=== PATIENT | female | born 1965 | race Caucasian/White ===

== ENCOUNTER 2016-04-05 16:30 | Outpatient (RCR) | payer MEDICAID ==
[~2016-04-05 16:30] MED LIST: ALBUTEROL0.83 MG/ML IH; ASPIRIN 32325 MG/TA1 PO; ASPIRIN 32325 MG/TAB PO; BUMEX 1MG TA1 MG/TA1 PO; CALCIUM 600 PLU1 TAB PO; CARDIZEM CD 18180 MG PO; CARDIZEM CD 30300 MG PO; CLOTRIM ANTIFUNGAL1% TP; COLACE 100100 MG/CAP PO; CORDARONE200 MG/TAB PO; COREG 6.256.25 MG/TA PO; COUMADIN 1MG1 MG/TAB PO; COUMADIN 22.5 MG/TAB PO; COUMADIN 2MG2 MG/TAB PO; COUMADIN 5MG5 MG/TAB PO; COUMADIN 6MG6 MG/TAB PO; CUBICIN 500MG500 MG IV; DESENEX TP; DESYREL 50MG50 MG PO; DIGITEK0.25 MG PO; DOXYCYCLINE 10100 MG PO; DOXYCYCLINE HY100 MG PO; DULCOLAX S10 MG/SUPP RC; FERROUS SU325 MG/TAB PO; FLEXERIL 1010 MG/TAB PO; GLUCOPHAGE500 MG/TAB PO; HALDOL .5M0.5 MG/TAB PO; HEPARIN 50500 U/5 ML IV; HOME MEDS; INDOCIN50 MG PO; IPRATROPIUM BROM3 M1 IH; JANUVIA50 MG PO; KLOR-CON 1010 MEQ PO; LANOXIN 0.25M0.25 MG PO; LASIX 20MG TABL20 MG PO; LASIX 40MG TABL40 MG PO; LASIX 80MG TABL80 MG PO; LEVAQUIN 5500 MG/TA1 PO; LEVOXYL0.05 MG PO; LIDODERM 5% PATC1 EA TP; LIPITOR 40MG TA40 MG PO; LIPITOR20 MG PO; LOVENOX 100100 MG/ML SQ; LOVENOX 4040 MG/0.4 SQ; MAG-OX 400400 MG/TAB PO; MEDROL 4MG DOSPA4 MG PO; MELAT3MGTAB PO; MIRALAX PA17 GM/Dose PO; MULTI VITAMINS1 TAB PO; NICODERM C21 MG/PATC TD; NITRO-DUR0.4 MG/PAT TD; NITROSTAT0.4 MG/TAB SL; NORCO 325 MG-51 TAB PO; NORCO 325 MG-7.1 TAB PO; NOVLOG SQ; NS INT FLUSH 1010 ML IV; NYSTATIN POWDER15 GM TOP; OSCAL 500 TAB500 MG PO; PERCOCET 325 MG1 TA2 PO; PLAVIX 75MG TAB75 MG PO; PREDNISONE10 MG PO; PRINIVIL10 MG PO; PRINIVIL2.5 MG PO; PRINIVIL5 MG PO; PROTONIX 40MG T40 MG PO; PROVENTIL0.09 MG/A1 IH; PROVIGIL200 MG PO; QUESTRAN4 GM/9 GM PO; RISPERDAL 0.5M0.5 MG PO; ROXICODONE 55 MG/TAB PO; RT ADVAIR 128 DISKUS; RT ADVAIR 228 DISKUS IH; RT SPIRIVA18 MCG IH; Remove Patch TD; SENNA8.6 MG PO; SENOKOT S 50 MG1 TAB PO; SYNTHROID0.05 MG/TA PO; SYNTHROID0.112 MG/T PO; TESSALON P100 MG/CAP PO; THERAGRAN1 TA1 PO; TOPROL XL 25MG25 MG PO; TOPROL XL 50MG50 MG PO; TRADJENTA5 MG PO; TUMS500 MG; TYLENOL 325MG325 MG PO; TYLENOL 8 HR PO; VANCOCIN HCL1 GM IV; VIIBRYD40 MG PO; VITAMIN C500 MG PO; VTAMINC250TA; VTAMINC250TA PO; WELLBUTRIN SR100 M1 PO; ZESTRIL2.5 MG PO; ZETIA 10MG TAB10 MG PO; ZINC OXIDE 28GM TOP; ZOLOFT 100MG100 MG PO; ZYLOPRIM 100MG100 MG PO
== END 2016-04-30 | disposition still patient (30) ==
LOC: WSOT
DX: G72.89 Other specified myopathies (principal)

== ENCOUNTER → 2016-04-11 | Outpatient (CLI) | payer SELFPAY ==
[~2016-04-11] MED LIST changes: +COUMADIN 3MG3 MG/TAB PO; +KLOR-CON M2020 MEQ PO; +LOPRESSOR 225 MG/TAB PO; +MELATONIN3 MG PO; +MULTIPLE VITAMI1 CAP PO; +SYNTHROID0.088 MG/T PO; +WELLBUTRIN 100100 MG PO; +WELLBUTRIN SR200 MG PO; +ZESTRIL 5MG5 MG PO
== END ==
LOC: WCC 13:00
DX: T81.31XA Disruption of external operation (surgical) wound, not elsewhere classified, initial encounter (principal); E66.01 Morbid (severe) obesity due to excess calories; R17 Unspecified jaundice
CPT/HCPCS: G0463

== ENCOUNTER 2016-04-12 10:00 | Outpatient (RCR) | payer SELFPAY ==
[~2016-04-12 10:00] MED LIST changes: -COUMADIN 3MG3 MG/TAB PO; -KLOR-CON M2020 MEQ PO; -LOPRESSOR 225 MG/TAB PO; -MELATONIN3 MG PO; -MULTIPLE VITAMI1 CAP PO; -SYNTHROID0.088 MG/T PO; -WELLBUTRIN 100100 MG PO; -WELLBUTRIN SR200 MG PO; -ZESTRIL 5MG5 MG PO
== END 2016-04-19 09:42 | disposition still patient (30) ==
LOC: WSPT 10:00
DX: M62.81 Muscle weakness (generalized) (principal); R26.2 Difficulty in walking, not elsewhere classified

== ENCOUNTER → 2016-04-12 | Outpatient (CLI) | payer SELFPAY ==
[2016-04-12 20:36] LABS: BASO % 0.5 % (0.0-2.0); EOS # 0.1 (0.0-0.7); EOS % 0.8 % (0-4.0); GRAN # 5.9 (1.4-6.5); GRAN % 79.6 % (42.2-75.2); HEMATOCRIT 38.5 % (37.0-47.0); LYMPH % 13.6 % (20.0-51.0); MEAN CELL VOLUME 90 fl (80.0-100.0); MEAN CORPUSCULAR HEMOGLOBIN 26 pg (27.0-31.0); MEAN CORPUSCULAR HGB CONC 29 g/dl (33.0-37.0); MEAN PLATELET VOLUME 10.5 fl (7.4-10.4); MONO # 0.4 (0.1-0.6); MONO % 5.4 % (1.7-9.3); PLATELET COUNT 291 K/mm3 (130-400); RED BLOOD COUNT 4.28 M/mm3 (4.10-5.30); REDCELL DISTRIBUTION WIDTH-CV 16.6 % (11.5-14.5); WHITE BLOOD COUNT 7.4 K/mm3 (4.8-10.8)
[2016-04-12 20:40] LABS: HEMOGLOBIN 11.2 g/dl (12.5-16.0)
[2016-04-12 20:47] LABS: ADJUSTED CALCIUM 9.7 mg/dL (8.4-10.2); ALBUMIN 3.7 gm/dL (3.5-5.0); BILIRUBIN,TOTAL 0.7 mg/dL (0.0-1.0); CALCIUM 9.5 mg/dL (8.4-10.2); CREATININE, serum 1.21 mg/dL (0.52-1.25); POTASSIUM 4.6 mmol/L (3.4-5.0); TOTAL PROTEIN 6.7 gm/dL (6.4-8.2)
== END ==
LOC: ZCOL.LAB 17:39
PROVIDERS: Nurse Practitioner
DX: Z01.89 Encounter for other specified special examinations (principal)

== ENCOUNTER → 2016-05-07 | Outpatient (CLI) | payer SELFPAY ==
[~2016-05-07] MED LIST changes: +COUMADIN 3MG3 MG/TAB PO; +KLOR-CON M2020 MEQ PO; +LOPRESSOR 225 MG/TAB PO; +MELATONIN3 MG PO; +MULTIPLE VITAMI1 CAP PO; +SYNTHROID0.088 MG/T PO; +WELLBUTRIN 100100 MG PO; +WELLBUTRIN SR200 MG PO; +ZESTRIL 5MG5 MG PO
[2016-05-07 10:26] LABS: CALCIUM 9.3 mg/dL (8.4-10.2); CREATININE, serum 1.16 mg/dL (0.52-1.25); POTASSIUM 4.2 mmol/L (3.4-5.0)
[2016-05-07 10:56] LABS: THYROID STIMULATING HORMONE 16.3 uIU/mL (0.465-4.680)
== END ==
LOC: ZLAB.STJ 09:20
DX: D55.1 Anemia due to other disorders of glutathione metabolism (principal); E13.620 Other specified diabetes mellitus with diabetic dermatitis

== ENCOUNTER → 2016-05-17 | Outpatient (CLI) | payer MEDICAID ==
[2016-05-17 17:23] LABS: INR 4.5 (0.8-3.0); PROTHROMBIN TIME 52.2 SECONDS (9.7-12.8)
== END ==
LOC: ZCOL.LAB 17:08
PROVIDERS: Internal Medicine
DX: I50.9 Heart failure, unspecified (principal)

== ENCOUNTER → 2016-05-19 | Outpatient (CLI) | payer MEDICAID ==
[2016-05-19 12:51] LABS: PROTHROMBIN TIME 40.8 SECONDS (9.7-12.8)
[2016-05-19 13:01] LABS: INR 3.5 (0.8-3.0)
== END ==
LOC: ZLAB.STJ 11:43
PROVIDERS: Internal Medicine
DX: I50.9 Heart failure, unspecified (principal)

== ENCOUNTER → 2016-05-22 | Outpatient (CLI) | payer MEDICAID ==
[2016-05-22 17:05] LABS: INR 1.6 (0.8-3.0); PROTHROMBIN TIME 17.7 SECONDS (9.7-12.8)
== END ==
LOC: ZLAB.STJ 12:09
PROVIDERS: Internal Medicine
DX: I48.0 Paroxysmal atrial fibrillation (principal)

== ENCOUNTER 2016-05-27 20:17 | Emergency (ER) | payer MEDICAID ==
[~2016-05-27] VITALS: Ht 167.6 cm; Wt 118.2 kg
[~2016-05-27 20:17] MED LIST changes: -COUMADIN 3MG3 MG/TAB PO; -KLOR-CON M2020 MEQ PO; -LOPRESSOR 225 MG/TAB PO; -MELATONIN3 MG PO; -MULTIPLE VITAMI1 CAP PO; -SYNTHROID0.088 MG/T PO; -WELLBUTRIN 100100 MG PO; -WELLBUTRIN SR200 MG PO; -ZESTRIL 5MG5 MG PO
[2016-05-27 20:18] VITALS: TEMP 98.5
[2016-05-27 20:49] LABS: BASO % 0.6 % (0.0-2.0); EOS % 0.8 % (0-4.0); GRAN # 4.1 (1.4-6.5); LYMPH # 0.6 (1.2-3.4); LYMPH % 12.2 % (20.0-51.0); MEAN CELL VOLUME 88 fl (80.0-100.0); MEAN CORPUSCULAR HGB CONC 29 g/dl (33.0-37.0); MEAN PLATELET VOLUME 9.2 fl (7.4-10.4); MONO # 0.4 (0.1-0.6); PLATELET COUNT 246 K/mm3 (130-400); RED BLOOD COUNT 3.82 M/mm3 (4.10-5.30); REDCELL DISTRIBUTION WIDTH-CV 17.7 % (11.5-14.5); WHITE BLOOD COUNT 5.3 K/mm3 (4.8-10.8)
[2016-05-27 20:50] LABS: HEMATOCRIT 33.6 % (37.0-47.0); HEMOGLOBIN 9.8 g/dl (12.5-16.0); MEAN CORPUSCULAR HEMOGLOBIN 26 pg (27.0-31.0)
[2016-05-27 20:59] LABS: ADJUSTED CALCIUM 9.3 mg/dL (8.4-10.2); ALANINE AMINOTRANSFERASE 21 U/L (9-52); ALBUMIN 3.5 gm/dL (3.5-5.0); ALKALINE PHOSPHATASE 132 U/L (50-136); ANION GAP 10 mmol/L (7-16); BILIRUBIN,TOTAL 0.8 mg/dL (0.0-1.0); BLOOD UREA NITROGEN 19 mg/dL (7-17); CALCIUM 8.9 mg/dL (8.4-10.2); CARBON DIOXIDE 34 mmol/L (22-30); CHLORIDE 96 mmol/L (98-107); CREATINE KINASE 25 U/L (30-135); CREATININE, serum 1.44 mg/dL (0.52-1.25); GLUCOSE 90 mg/dL (74-106); LIPASE 61 U/L (23-300); POTASSIUM 4.2 mmol/L (3.4-5.0); SODIUM 139 mmol/L (137-145); TOTAL PROTEIN 6.6 gm/dL (6.4-8.2)
[2016-05-27 21:07] LABS: B-TYPE NATRIURETIC PEPTIDE 10400 pg/mL (0-125)
[2016-05-27 21:12] LABS: TROPONIN-I < 0.012 ng/mL (0.000-0.034)
[2016-05-27] MEDS ORDERED: LASIX 20MG TABL20 MG PO (21:35)
[2016-05-27] MEDS ORDERED: KLOR-CON M2020 MEQ PO (21:35)
[2016-05-27] MEDS ORDERED: WELLBUTRIN 100100 MG PO (21:36)
[2016-05-27] MEDS ORDERED: WELLBUTRIN SR200 MG PO (21:36)
[2016-05-27] MEDS ORDERED: COUMADIN 2MG2 MG/TAB PO (21:37)
[2016-05-27] MEDS ORDERED: COUMADIN 3MG3 MG/TAB PO (21:37)
[2016-05-27] MEDS ORDERED: ZESTRIL 5MG5 MG PO (21:43)
[2016-05-27] MEDS ORDERED: LOPRESSOR 225 MG/TAB PO (21:44)
[2016-05-27] MEDS ORDERED: QUESTRAN4 GM/9 GM PO (21:44)
[2016-05-27] MEDS ORDERED: TYLENOL 8 HR PO (21:44)
[2016-05-27] MEDS ORDERED: PROVIGIL200 MG PO (21:45)
[2016-05-27] MEDS ORDERED: ZOLOFT 100MG100 MG PO (21:45)
[2016-05-27] MEDS ORDERED: DESYREL 50MG50 MG PO (21:45)
[2016-05-27] MEDS ORDERED: VTAMINC250TA PO (21:46)
[2016-05-27] MEDS ORDERED: MULTIPLE VITAMI1 CAP PO (21:46)
[2016-05-27] MEDS ORDERED: COREG 6.256.25 MG/TA PO (21:46)
[2016-05-27] MEDS ORDERED: MELATONIN3 MG PO (21:46)
[2016-05-27] MEDS ORDERED: FERROUS SU325 MG/TAB PO (21:47)
[2016-05-27] MEDS ORDERED: LIPITOR20 MG PO (21:47)
[2016-05-27] MEDS ORDERED: SYNTHROID0.088 MG/T PO (21:47)
[2016-05-27] MEDS ORDERED: COLACE 100100 MG/CAP PO (21:48)
[2016-05-27] MEDS ORDERED: PROTONIX 40MG T40 MG PO (21:48)
[2016-05-27] MEDS ORDERED: CORDARONE200 MG/TAB PO (21:48)
[2016-05-27] MEDS ORDERED: MAG-OX 400400 MG/TAB PO (21:48)
[2016-05-27 23:01] VITALS: BP 102/80; PULSE 53
== END 2016-05-27 22:46 | disposition home or self-care (01) ==
LOC: COL.ER 20:17
PROVIDERS: Emergency Medicine
DX: I50.9 Heart failure, unspecified (principal); I25.10 Atherosclerotic heart disease of native coronary artery without angina pectoris; J44.9 Chronic obstructive pulmonary disease, unspecified; Z95.5 Presence of coronary angioplasty implant and graft
CPT/HCPCS: A4315

== ENCOUNTER → 2016-05-29 | Outpatient (CLI) | payer SELFPAY ==
[~2016-05-29] MED LIST changes: +COUMADIN 3MG3 MG/TAB PO; +KLOR-CON M2020 MEQ PO; +LOPRESSOR 225 MG/TAB PO; +MELATONIN3 MG PO; +MULTIPLE VITAMI1 CAP PO; +SYNTHROID0.088 MG/T PO; +WELLBUTRIN 100100 MG PO; +WELLBUTRIN SR200 MG PO; +ZESTRIL 5MG5 MG PO
== END ==
LOC: ZLAB.STJ 15:28
DX: Z53.9 Procedure and treatment not carried out, unspecified reason (principal)

== ENCOUNTER → 2016-06-28 | Outpatient (CLI) | payer MEDICAID ==
[2016-06-28 16:22] LABS: CALCIUM 9.9 mg/dL (8.4-10.2); CREATININE, serum 1.31 mg/dL (0.52-1.25); POTASSIUM 4.2 mmol/L (3.4-5.0)
== END ==
LOC: ZLAB.STJ 14:34
PROVIDERS: Internal Medicine
DX: I50.9 Heart failure, unspecified (principal)

== ENCOUNTER → 2016-08-06 | Outpatient (CLI) | payer MEDICAID | LOC: EDSTATUS 06:54 → ZLAB.STJ 09:20 | DX: R53.1 Weakness (principal) ==

== ENCOUNTER → 2016-08-30 | Outpatient (CLI) | payer MEDICAID ==
[2016-08-30 10:38] LABS: MEAN CELL VOLUME 92 fl (80.0-100.0); MEAN CORPUSCULAR HGB CONC 32 g/dl (33.0-37.0); MEAN PLATELET VOLUME 9.7 fl (7.4-10.4); PLATELET COUNT 193 K/mm3 (130-400); RED BLOOD COUNT 4.02 M/mm3 (4.10-5.30); REDCELL DISTRIBUTION WIDTH-CV 21.2 % (11.5-14.5); WHITE BLOOD COUNT 5.8 K/mm3 (4.8-10.8)
[2016-08-30 10:51] LABS: ADJUSTED CALCIUM 9.9 mg/dL (8.4-10.2); ALBUMIN 3.3 gm/dL (3.5-5.0); BILIRUBIN,TOTAL 0.5 mg/dL (0.0-1.0); CALCIUM 9.3 mg/dL (8.4-10.2); CREATININE, serum 1.4 mg/dL (0.52-1.25); POTASSIUM 4.6 mmol/L (3.4-5.0); TOTAL PROTEIN 6.3 gm/dL (6.4-8.2)
[2016-08-30 11:16] LABS: HEMOGLOBIN 11.7 g/dl (12.5-16.0); MEAN CORPUSCULAR HEMOGLOBIN 29 pg (27.0-31.0)
[2016-08-30 11:17] LABS: HEMATOCRIT 36.8 % (37.0-47.0)
== END ==
LOC: ZLAB.STJ 09:40
PROVIDERS: Nurse Practitioner
DX: N17.9 Acute kidney failure, unspecified (principal); I50.9 Heart failure, unspecified; Z79.01 Long term (current) use of anticoagulants

== ENCOUNTER → 2016-09-06 | Outpatient (REF) | LOC: ZLAB.STJ 10:33 | DX: Z01.89 Encounter for other specified special examinations (principal) ==

== ENCOUNTER → 2016-10-08 | Outpatient (CLI) | payer MEDICAID | LOC: ZLAB.STJ 16:14 | DX: J96.01 Acute respiratory failure with hypoxia (principal) ==

== ENCOUNTER → 2018-02-04 | Outpatient (REF) ==
[2018-02-04 11:09] LABS: COLLECTION METHOD CLEAN CATCH
[2018-02-04 11:26] LABS: MUCOUS Present /lpf; PH 6 (5-8); URINE APPEARANCE Cloudy; URINE BACTERIA Many /hpf; URINE BILIRUBIN Negative (NEGATIVE); URINE BLOOD Negative (NEGATIVE); URINE CALCIUM OXALATE CRYSTAL Present /hpf; URINE COLOR Yellow; URINE GLUCOSE Negative (NEGATIVE); URINE KETONE Negative (NEGATIVE); URINE LEUKOCYTE ESTERASE 2+ (NEGATIVE); URINE NITRATE Positive (NEGATIVE); URINE PROTEIN(semi-quant) 1+ (NEGATIVE); URINE RBC 0-2 /hpf; URINE UROBILINOGEN Negative (NEGATIVE)
== END ==
LOC: ZCOL.LAB 11:01 → ZLAB.WCH 11:01
PROVIDERS: Physician Assistant
DX: N39.0 Urinary tract infection, site not specified (principal)

== ENCOUNTER → 2018-02-09 | Outpatient (CLI) | payer MEDICAID | LOC: ZCOL.LAB 13:51 | DX: N39.0 Urinary tract infection, site not specified (principal) ==

== ENCOUNTER → 2018-02-10 | Outpatient (REF) | LOC: ZCOL.LAB 17:51 | DX: L03.115 Cellulitis of right lower limb (principal) ==

== ENCOUNTER → 2018-02-11 | Outpatient (REF) ==
[2018-02-11 09:43] LABS: BASO % 0.4 % (0.0-2.0); EOS # 0.1 (0.0-0.7); GRAN # 5.7 (1.4-6.5); GRAN % 81.6 % (42.2-75.2); HEMATOCRIT 37.9 % (37.0-47.0); HEMOGLOBIN 10.9 g/dl (12.5-16.0); LYMPH # 0.7 (1.2-3.4); LYMPH % 10.1 % (20.0-51.0); MEAN CELL VOLUME 100 fl (80.0-100.0); MEAN CORPUSCULAR HEMOGLOBIN 29 pg (27.0-31.0); MEAN CORPUSCULAR HGB CONC 29 g/dl (33.0-37.0); MEAN PLATELET VOLUME 11.4 fl (7.4-10.4); MONO # 0.5 (0.1-0.6); MONO % 6.6 % (1.7-9.3); PLATELET COUNT 234 K/mm3 (130-400); RED BLOOD COUNT 3.78 M/mm3 (4.10-5.30); REDCELL DISTRIBUTION WIDTH-CV 18.2 % (11.5-14.5)
[2018-02-11 09:54] LABS: ALBUMIN 3.9 gm/dL (3.5-5.0); BILIRUBIN,TOTAL 0.5 mg/dL (0.0-1.0); CALCIUM 8.6 mg/dL (8.4-10.2); CREATININE, serum 1.3 mg/dL (0.52-1.25); POTASSIUM 4.2 mmol/L (3.4-5.0); TOTAL PROTEIN 6.8 gm/dL (6.4-8.2)
== END ==
LOC: ZCOL.LAB 09:33
PROVIDERS: Physician Assistant
DX: I13.0 Hypertensive heart and chronic kidney disease with heart failure and stage 1 through stage 4 chronic kidney disease, or unspecified chronic kidney disease (principal); I50.20 Unspecified systolic (congestive) heart failure; N18.9 Chronic kidney disease, unspecified

== ENCOUNTER → 2018-02-16 | Emergency (ER) | payer MEDICAID ==
[~2018-02-16] VITALS: Ht 154.9 cm; Wt 113.2 kg
[~2018-02-16] MED LIST changes: +BACTRIM DS 8001 TAB PO
[2018-02-16 15:00] VITALS: TEMP 98.7
[2018-02-16 16:47] LABS: BASO % 0.4 % (0.0-2.0); EOS # 0.1 (0.0-0.7); EOS % 1.1 % (0-4.0); GRAN # 5.9 (1.4-6.5); GRAN % 79.8 % (42.2-75.2); HEMOGLOBIN 10.1 g/dl (12.5-16.0); LYMPH # 0.8 (1.2-3.4); LYMPH % 10.9 % (20.0-51.0); MEAN CELL VOLUME 101 fl (80.0-100.0); MEAN CORPUSCULAR HEMOGLOBIN 28 pg (27.0-31.0); MEAN CORPUSCULAR HGB CONC 28 g/dl (33.0-37.0); MONO # 0.6 (0.1-0.6); MONO % 7.5 % (1.7-9.3); PLATELET COUNT 199 K/mm3 (130-400); RED BLOOD COUNT 3.56 M/mm3 (4.10-5.30); REDCELL DISTRIBUTION WIDTH-CV 17.7 % (11.5-14.5)
[2018-02-16 16:53] LABS: HEMATOCRIT 35.8 % (37.0-47.0)
[2018-02-16 17:10] LABS: ALBUMIN 3.9 gm/dL (3.5-5.0); BILIRUBIN,TOTAL 0.4 mg/dL (0.0-1.0); C-REACTIVE PROTEIN 1.7 mg/dL (0.0-0.9); CALCIUM 8.9 mg/dL (8.4-10.2); CREATININE, serum 1.56 mg/dL (0.52-1.25); POTASSIUM 4.2 mmol/L (3.4-5.0); TOTAL PROTEIN 6.9 gm/dL (6.4-8.2)
[2018-02-16 17:24] LABS: ERYTHROCYTE SEDIMENTATION RATE 15 mm/hr (0-30)
[2018-02-16 18:14] VITALS: BP 166/95; PULSE 59
== END ==
LOC: COL.ER 14:38
PROVIDERS: Emergency Medicine
DX: L97.829 Non-pressure chronic ulcer of other part of left lower leg with unspecified severity (principal); B95.62 Methicillin resistant Staphylococcus aureus infection as the cause of diseases classified elsewhere; J44.9 Chronic obstructive pulmonary disease, unspecified; I11.0 Hypertensive heart disease with heart failure; I50.9 Heart failure, unspecified; I25.10 Atherosclerotic heart disease of native coronary artery without angina pectoris; E11.9 Type 2 diabetes mellitus without complications; Z79.01 Long term (current) use of anticoagulants

== ENCOUNTER 2018-05-20 15:40 | Inpatient (IN) | payer MEDICAID ==
[~2018-05-20] VITALS: Ht 170.2 cm; Wt 145.6 kg
[2018-05-20] VITALS (209 sets, daily range): O2SAT 81–100
[~2018-05-20 15:40] MED LIST changes: -WELLBUTRIN 100100 MG PO
[2018-05-20 16:42] LABS: BASO % 0.5 % (0.0-2.0); EOS # 0.1 (0.0-0.7); GRAN # 6.8 (1.4-6.5); GRAN % 85.8 % (42.2-75.2); HEMATOCRIT 37.8 % (37.0-47.0); HEMOGLOBIN 10.4 g/dl (12.5-16.0); LYMPH # 0.4 (1.2-3.4); LYMPH % 4.7 % (20.0-51.0); MEAN CELL VOLUME 94 fl (80.0-100.0); MEAN CORPUSCULAR HEMOGLOBIN 26 pg (27.0-31.0); MEAN CORPUSCULAR HGB CONC 28 g/dl (33.0-37.0); MEAN PLATELET VOLUME 10.9 fl (7.4-10.4); MONO # 0.6 (0.1-0.6); MONO % 7.6 % (1.7-9.3); PLATELET COUNT 282 K/mm3 (130-400); RED BLOOD COUNT 4.02 M/mm3 (4.10-5.30); REDCELL DISTRIBUTION WIDTH-CV 18.9 % (11.5-14.5)
[2018-05-20 16:59] LABS: ALBUMIN 3.5 gm/dL (3.5-5.0); BILIRUBIN,TOTAL 0.8 mg/dL (0.0-1.0); C-REACTIVE PROTEIN 4.8 mg/dL (0.0-0.9); CALCIUM 9.1 mg/dL (8.4-10.2); CREATININE, serum 1.53 mg/dL (0.52-1.25); POTASSIUM 5.3 mmol/L (3.4-5.0); TOTAL PROTEIN 6.9 gm/dL (6.4-8.2)
[2018-05-20 17:11] LABS: ERYTHROCYTE SEDIMENTATION RATE 40 mm/hr (0-30)
[2018-05-20] MEDS ORDERED: ELIQUIS 5MG PO (17:47)
--- NOTE | 2018-05-20 19:34 | NUR ---
Patient arrived to the unit via stretcher.
[2018-05-20] MEDS ORDERED: NEURONTIN300 MG/CAP PO (21:23)
[2018-05-20] MEDS ORDERED: RT ADVAIR 528 DISKUS IH (21:24)
[2018-05-20] MEDS ORDERED: BACTRIM DS 8001 TAB PO (21:25)
[2018-05-20] MEDS ORDERED: PROAIR HFA0.09 MG/AC IH (21:28)
--- NOTE | 2018-05-20 21:45 | NUR ---
Skin assessment and bed bath completed. Skin under right breast reddened and excoriated. Excoriation also noted under pannus. This area is oozing small amounts of blood with cleansing. Groin reddend with multiple areas of raw non-intact skin. Buttocks also excoriated with dry flaky skin. Right foot bandage removed. A circular unstageagle ulcer measuring 5X5 cm noted. Area is blackened and necrotic; surrounding skin on medial foot has yellow eschar underneath a layer of intact skin. Bandage reapplied and wrapped. Foul odor is noted from wound. Anterior portion of ferro is dry, with discolored darkened flaky patches. Medial ferro has approximately 5X5 cm area of shallow wound with a pink wound bed. This area is open to air.
[2018-05-21] VITALS (856 sets, daily range): BP systolic 99–140; BP diastolic 1–65; PULSE 47–63; TEMP 97.8–98.9; O2SAT 79–100
[2018-05-21 00:51] LABS: CREATININE, serum 1.6 mg/dL (0.52-1.25)
--- NOTE | 2018-05-21 03:24 | NUR ---
Patient resting in bed with eyes shut; no concerns at this time.
--- NOTE | 2018-05-21 04:45 | NUR ---
Patient complaining of gereralized pain; PRN norco administered and assisted to reposition in bed. Will continue to monitor.
[2018-05-21] MEDS ORDERED: NORCO 325 MG-51 TAB PO (04:48)
[2018-05-21 04:55] LABS: BASO % 0.5 % (0.0-2.0); EOS # 0.2 (0.0-0.7); EOS % 2.1 % (0-4.0); GRAN # 6.4 (1.4-6.5); GRAN % 83.6 % (42.2-75.2); HEMATOCRIT 36.2 % (37.0-47.0); LYMPH # 0.4 (1.2-3.4); LYMPH % 4.8 % (20.0-51.0); MEAN CELL VOLUME 94 fl (80.0-100.0); MEAN CORPUSCULAR HEMOGLOBIN 26 pg (27.0-31.0); MEAN CORPUSCULAR HGB CONC 28 g/dl (33.0-37.0); MONO # 0.7 (0.1-0.6); MONO % 8.6 % (1.7-9.3); PLATELET COUNT 312 K/mm3 (130-400); RED BLOOD COUNT 3.85 M/mm3 (4.10-5.30); REDCELL DISTRIBUTION WIDTH-CV 19.2 % (11.5-14.5)
[2018-05-21 05:06] LABS: CALCIUM 8.9 mg/dL (8.4-10.2); CREATININE, serum 1.66 mg/dL (0.52-1.25); POTASSIUM 4.9 mmol/L (3.4-5.0)
--- NOTE | 2018-05-21 07:05 | NUR ---
Bedside report given to CHUNG Powers and CHUNG Leiva. Patient care transfered.
[2018-05-21 16:27] LABS: COLLECTION METHOD CATHETER
[2018-05-21 16:41] LABS: BUDDING YEAST Present /hpf; HYALINE CAST >12 /lpf; MUCOUS Present /lpf; PH 5 (5-8); SQUAMOUS EPITHELIAL 0-2 /hpf; URINE APPEARANCE Cloudy; URINE BACTERIA Rare /hpf; URINE BILIRUBIN Negative (NEGATIVE); URINE BLOOD 3+ (NEGATIVE); URINE COLOR Yellow; URINE GLUCOSE Negative (NEGATIVE); URINE KETONE Negative (NEGATIVE); URINE LEUKOCYTE ESTERASE 2+ (NEGATIVE); URINE NITRATE Negative (NEGATIVE); URINE PROTEIN(semi-quant) Negative (NEGATIVE); URINE RBC >50 /hpf
--- NOTE | 2018-05-21 16:50 | NUR ---
Repot given to CHUNG Jeong on TELE.
--- NOTE | 2018-05-21 17:10 | NUR ---
Pt trabsfered to rm 351. Pt statble at time of tx, denies pain when not moving, VSS, A/Ox3, n 2L NC prior to tx but able to tolerate tx on room air. Pt placed on tele box and O2 2L restated on arrival to new room. CHUNG Gomez made aware of pt arrival.
--- NOTE | 2018-05-21 18:59 | NUR ---
Report given to CHUNG Reyes to resume care.
--- NOTE | 2018-05-21 20:49 | NUR ---
Pt resting in bed watching TV, shift assessments complete, left Pt call light in reach, bed in lowest position.
[2018-05-22 00:26] VITALS: BP 106/46; PULSE 50; TEMP 98.2
[2018-05-22 04:43] VITALS: BP 105/46; PULSE 44; TEMP 97.8
--- NOTE | 2018-05-22 05:29 | NUR ---
Pt slept well during the night, no C/O pain, VS have been stable.
[2018-05-22 07:08] LABS: BASO % 0.7 % (0.0-2.0); EOS # 0.1 (0.0-0.7); EOS % 2.3 % (0-4.0); GRAN % 70.7 % (42.2-75.2); LYMPH # 0.7 (1.2-3.4); LYMPH % 12.8 % (20.0-51.0); MEAN CELL VOLUME 96 fl (80.0-100.0); MEAN CORPUSCULAR HGB CONC 27 g/dl (33.0-37.0); MEAN PLATELET VOLUME 11.1 fl (7.4-10.4); MONO # 0.7 (0.1-0.6); MONO % 12.8 % (1.7-9.3); PLATELET COUNT 319 K/mm3 (130-400); RED BLOOD COUNT 3.68 M/mm3 (4.10-5.30); REDCELL DISTRIBUTION WIDTH-CV 19.2 % (11.5-14.5)
[2018-05-22 07:12] LABS: HEMATOCRIT 35.3 % (37.0-47.0); HEMOGLOBIN 9.4 g/dl (12.5-16.0); MEAN CORPUSCULAR HEMOGLOBIN 26 pg (27.0-31.0)
[2018-05-22 07:16] LABS: C-REACTIVE PROTEIN 4.4 mg/dL (0.0-0.9); CALCIUM 8.4 mg/dL (8.4-10.2); CREATININE, serum 1.94 mg/dL (0.52-1.25); POTASSIUM 4.4 mmol/L (3.4-5.0)
[2018-05-22 07:59] VITALS: BP 102/44; PULSE 73; TEMP 98.1
--- NOTE | 2018-05-22 10:36 | NUR ---
SW met with patient after clinical rounds. Patient lives is but is currently living with her daughter. Her PCP is Dr Nickerson and she obtain prescriptions from [facility] in [place]. Patient uses a wheelchair but no other DME is reported and she does not use any home health services. Patient will likley need 6 weeks of IV antibiotics once she is discharged. Patient reports her can take her these appoitments. SW will contact [facility] to inquire will be able to use them for her IV antibiotics.
[2018-05-22 11:52] VITALS: BP 106/53; PULSE 49; TEMP 98.1
[2018-05-22 16:35] VITALS: BP 123/70; PULSE 52; TEMP 98.7
[2018-05-22 19:28] VITALS: BP 116/75; PULSE 56; TEMP 98.4
[2018-05-23] VITALS (7 sets, daily range): BP systolic 109–139; BP diastolic 44–82; PULSE 48–56; TEMP 98.2–98.8
--- NOTE | 2018-05-23 00:15 | NUR ---
Taking over care for patient at this time- pleasant, no requests at this time- o2 at 2L/nc, Llanos to DD with clear yellow urine, States has some pain with urination- urine culture pending, lung sounds clear, decreased in the bases, right leg with dressing dry and intact, has scabs/abrasion to RLE-discolored. L/BKA. PICC to LORENA. Denies any pain at this time. Contact [facility] for HX MRSA
--- NOTE | 2018-05-23 05:53 | NUR ---
Quiet night- slept well, no requests for pain meds-
[2018-05-23 07:24] LABS: BASO % 0.4 % (0.0-2.0); EOS # 0.1 (0.0-0.7); EOS % 1.4 % (0-4.0); GRAN # 5.2 (1.4-6.5); GRAN % 75.4 % (42.2-75.2); LYMPH # 0.7 (1.2-3.4); LYMPH % 10.5 % (20.0-51.0); MEAN CELL VOLUME 96 fl (80.0-100.0); MEAN CORPUSCULAR HGB CONC 27 g/dl (33.0-37.0); MEAN PLATELET VOLUME 10.7 fl (7.4-10.4); MONO # 0.8 (0.1-0.6); MONO % 11.4 % (1.7-9.3); PLATELET COUNT 344 K/mm3 (130-400); RED BLOOD COUNT 3.65 M/mm3 (4.10-5.30); REDCELL DISTRIBUTION WIDTH-CV 18.9 % (11.5-14.5)
[2018-05-23 07:26] LABS: HEMOGLOBIN 9.4 g/dl (12.5-16.0); MEAN CORPUSCULAR HEMOGLOBIN 26 pg (27.0-31.0)
[2018-05-23 07:35] LABS: CALCIUM 8.5 mg/dL (8.4-10.2); POTASSIUM 4.1 mmol/L (3.4-5.0)
--- NOTE | 2018-05-23 08:25 | NUR ---
Pt AAOx2, pt thought she was at [facility] - pt reoriented. Call light within reach. No complaints at this time. Breakfast self ordered.
--- NOTE | 2018-05-23 09:00 | NUR ---
PICC intact right upper arm. With sterile technique right upper arm PICC dressing change done with insertion site cleansed with ChloraPrep 1, scant amount of dried red drainage noted, impregnated exiting disc applied, skin prep, StatLock, and Tegaderm applied. No signs or symptoms of IV complications noted. No concerns voiced. Arm wrapped with Wilfred to protect catheter.
--- NOTE | 2018-05-23 09:00 | NUR ---
Pt refusing to turn for repositioning
--- NOTE | 2018-05-23 15:30 | NUR ---
[facility] Director called and left phone number to contact prior to pt discharge to continue IV Antibiotics. [phone]
--- NOTE | 2018-05-23 16:43 | NUR ---
Pt is refusing to turn every two hours. KENYA Torres also unsuccessful in encouraging turning.
--- NOTE | 2018-05-23 18:01 | NUR ---
Dressing change performed on Right Foot Wound using gauze and kerlex loosly applied
[2018-05-24 02:27] VITALS: BP 121/57; PULSE 50; TEMP 98.8
--- NOTE | 2018-05-24 05:32 | NUR ---
PT HAD UNEVENTFUL NOC. HAD C/O HEADACHE AND GENERALIZED BODY ACHES WITHMOVING IN BED AND ASKED FOR PAIN MEDS. NO OTHER ISSUES OR CONSERNS VOICED.
[2018-05-24 06:42] LABS: BASO % 0.5 % (0.0-2.0); EOS # 0.1 (0.0-0.7); EOS % 1.7 % (0-4.0); GRAN # 5.8 (1.4-6.5); LYMPH % 12.5 % (20.0-51.0); MEAN CELL VOLUME 96 fl (80.0-100.0); MEAN CORPUSCULAR HGB CONC 27 g/dl (33.0-37.0); MEAN PLATELET VOLUME 10.9 fl (7.4-10.4); MONO # 0.8 (0.1-0.6); MONO % 10.4 % (1.7-9.3); PLATELET COUNT 344 K/mm3 (130-400); RED BLOOD COUNT 3.83 M/mm3 (4.10-5.30); REDCELL DISTRIBUTION WIDTH-CV 19.1 % (11.5-14.5)
[2018-05-24 06:47] LABS: HEMATOCRIT 36.8 % (37.0-47.0); HEMOGLOBIN 9.9 g/dl (12.5-16.0); MEAN CORPUSCULAR HEMOGLOBIN 26 pg (27.0-31.0)
[2018-05-24 07:06] LABS: CALCIUM 8.9 mg/dL (8.4-10.2); CREATININE, serum 1.82 mg/dL (0.52-1.25)
[2018-05-24 07:36] VITALS: BP 124/53; PULSE 52; TEMP 98.2
--- NOTE | 2018-05-24 09:00 | NUR ---
Assessment complete. Pt sitting up in bed eating breakfast, A&O x 3. Breath sounds CTAB. BS active x 4. Pt reports pain to right foot 7 out of 10 on pain scale. PICC to right upper arm without s/s of complications. Dressing to right foot CDI. Groin area with excoriation. Llanos to DD with clear, yellow urine. No further needs reported. Call light in reach.
[2018-05-24 11:00] VITALS: BP 124/59; PULSE 49; TEMP 98.1
--- NOTE | 2018-05-24 14:14 | NUR ---
Resting in bed eating lunch at this time. No pain or needs reported. Report recieved from CHUNG Laird. The call light is in place.
[2018-05-24 16:14] VITALS: BP 109/58; PULSE 50; TEMP 97.5
--- NOTE | 2018-05-24 18:15 | NUR ---
Sitting up watching television. No pain or needs reported the call light is place.
[2018-05-24 19:26] VITALS: BP 130/66; PULSE 49; TEMP 98
[2018-05-25 02:33] VITALS: BP 138/68; PULSE 49; TEMP 98.4
--- NOTE | 2018-05-25 03:30 | NUR ---
PT HAD C/O RT FOOT PAIN AT HS AND NEEDED PRN PAIN MED, MED ADMINSITERED. PT OTHERWISE HAD AN UNEVENTFUL NOC. APPEARED TO HAVE SLEPT WELL. NO OTHER ISSUES OR CONSERNS VOICED.
--- NOTE | 2018-05-25 06:16 | NUR ---
PT WAS IN ALOT OF PAIN THIS AM. ADMINISTERED PRN PAIN MED. REOPOSITIONED PT AND PT REMAINED IN PAIN. OFFERED PT PRN TYLENOL WELL WHEN SHE REQUESTED SOMETHING ELSE FOR PAIN, ADMINISTERED MED. PT WAS C/O ABOUT PAIN WITH URINATION. THIS NURSE TALKED TO ASSEMBLER [employer] ABOUT PT HAVING THIS PAIN, HAROON DELGADO STATED TO ENCOURAGE INCREASE OF INTAKE IN WATER DUE TO UA RESULTS. TOLD PT TO DRINK MORE WATER, PT STATED THAT SHE DIDNT THINK WATER WOULD HELP. FILLED ICE WATER PITCHER FULL OF ICE WATER FOR HER
[2018-05-25 07:15] VITALS: BP 129/63; PULSE 50; TEMP 97.5
[2018-05-25 11:35] VITALS: BP 136/72; PULSE 47; TEMP 98.2
--- NOTE | 2018-05-25 17:00 | NUR ---
Dressing to right foot with serous drainage, dressing removed and new dressing placed with ABD, sof-roll and Kerlix. This nurse offered pt pain medication prior to dressing change but pt denies need for medication at this time. Call light in reach.
[2018-05-25 17:09] VITALS: BP 130/66; PULSE 49; TEMP 97.9
[2018-05-25 19:08] VITALS: BP 134/63; PULSE 57; TEMP 97.9
--- NOTE | 2018-05-25 20:45 | NUR ---
Shift assessment complete. Pt resting in bed, sleepy but easy to wake, a&o, cooperative c cares. Pt c/o pain to RLE/foot, LLE phantom et stump pain, et RUE "arthritis" pain; provided c PRN pain med per pt request. Pt denies other c/o. PICC noted to R upper arm, patent c good blood return. Llanos to DD s complication. R BKA noted, healed. L foot ulcer noted, dressing C/D/I. LLE dry et flaking. Pt s further needs. Call light in reach, bed alarm in, place. Will monitor.
[2018-05-26 00:37] VITALS: BP 134/77; PULSE 53; TEMP 98.1
[2018-05-26 07:37] VITALS: BP 143/74; PULSE 51; TEMP 98.1
--- NOTE | 2018-05-26 08:00 | NUR ---
Pt required stimulation to awaken pt. While awake pt AOx4, and falls back asleep without continued verbal communication. Dressing change performed. Call light within reach, no complaints from pt at this time
[2018-05-26 08:58] LABS: CALCIUM 9.5 mg/dL (8.4-10.2); CREATININE, serum 1.4 mg/dL (0.52-1.25); POTASSIUM 4.3 mmol/L (3.4-5.0)
[2018-05-26 10:58] LABS: BASO % 0.4 % (0.0-2.0); EOS # 0.1 (0.0-0.7); EOS % 1.9 % (0-4.0); GRAN # 5.4 (1.4-6.5); GRAN % 76.3 % (42.2-75.2); HEMATOCRIT 36.1 % (37.0-47.0); LYMPH # 0.8 (1.2-3.4); LYMPH % 11.1 % (20.0-51.0); MEAN CELL VOLUME 94 fl (80.0-100.0); MEAN CORPUSCULAR HEMOGLOBIN 26 pg (27.0-31.0); MEAN CORPUSCULAR HGB CONC 28 g/dl (33.0-37.0); MEAN PLATELET VOLUME 10.3 fl (7.4-10.4); MONO # 0.7 (0.1-0.6); MONO % 9.4 % (1.7-9.3); PLATELET COUNT 345 K/mm3 (130-400); RED BLOOD COUNT 3.83 M/mm3 (4.10-5.30); REDCELL DISTRIBUTION WIDTH-CV 18.8 % (11.5-14.5)
--- NOTE | 2018-05-26 11:09 | NUR ---
SW met with patient after clinical rounds. SW reported PT has recommended patient go to a post acute rehab facility. SW informed patient of both [facility] and [facility] as options for this. Patient is open to either and is okay with SW sending referrals.
[2018-05-26 11:30] VITALS: BP 139/79; PULSE 50; TEMP 98.1
--- NOTE | 2018-05-26 13:38 | NUR ---
TIMOTHY rec'd a call from [facility]. They are unable to accept patient due to insurance.
[2018-05-26 14:54] VITALS: BP 144/83; PULSE 51; TEMP 97.9
[2018-05-26 19:27] VITALS: BP 141/84; PULSE 50; TEMP 97.2
--- NOTE | 2018-05-26 20:30 | NUR ---
Shift assessment complete. Pt resting in bed, awake, a&o, cooperative c cares. Pt crying out, c/o pain to BLE et R shoulder; PRN pain meds given c HS meds per pt request, rating pain "8/10". Pt denies other c/o. PICC noted to R upper arm, patent c good blood return. Llanos to DD. Pt denies further needs at this time. Call light in reach, will monitor.
[2018-05-27] VITALS (7 sets, daily range): BP systolic 114–148; BP diastolic 56–91; PULSE 45–56; TEMP 97.3–98.3
[2018-05-27 06:10] LABS: BASO % 0.5 % (0.0-2.0); EOS # 0.2 (0.0-0.7); EOS % 2.3 % (0-4.0); GRAN # 6.8 (1.4-6.5); GRAN % 77.5 % (42.2-75.2); HEMATOCRIT 38.3 % (37.0-47.0); HEMOGLOBIN 10.6 g/dl (12.5-16.0); MEAN CELL VOLUME 93 fl (80.0-100.0); MEAN CORPUSCULAR HEMOGLOBIN 26 pg (27.0-31.0); MEAN CORPUSCULAR HGB CONC 28 g/dl (33.0-37.0); MEAN PLATELET VOLUME 10.2 fl (7.4-10.4); MONO # 0.7 (0.1-0.6); MONO % 7.8 % (1.7-9.3); PLATELET COUNT 399 K/mm3 (130-400); RED BLOOD COUNT 4.12 M/mm3 (4.10-5.30); REDCELL DISTRIBUTION WIDTH-CV 18.9 % (11.5-14.5)
[2018-05-27 06:23] LABS: CALCIUM 9.7 mg/dL (8.4-10.2); CREATININE, serum 1.41 mg/dL (0.52-1.25); POTASSIUM 4.5 mmol/L (3.4-5.0)
--- NOTE | 2018-05-27 07:24 | NUR ---
Resting in bed at this time. No pain or needs reported. The call light is in place.
--- NOTE | 2018-05-27 16:39 | NUR ---
TIMOTHY continues to wait for acceptance from [facility]. TIMOTHY contacted [facility] to inquire if they accept [employer] insurance. TIMOTHY left message. TIMOTHY also faxed a referral to [facility] and contacted Elroy. Elroy reports he has had issues in the past with [employer] paying for [facility] but Elroy will look at referral and check payor source.
--- NOTE | 2018-05-27 19:30 | NUR ---
Pt resting with HOB elevated. States she needs to use the bedpan. Moderate amount of soft stool. Pericare completed. Pt turned and repositioned with pad change. Pulled up. No distress noted. Well tolerated. Lungs diminished in all ramey. O2 via NC. Pt denies pain at this time. Llanos catheter to dependent drainage- gael urine with sediment. Extensive scaling to RLE and LBKA. R foot unstageable ulceration covered with dressing-clean, dry and intact. All folds excoriated.
--- NOTE | 2018-05-27 19:35 | NUR ---
No change throughout the shift. Report given to CHUNG Marquez to resume care.
--- NOTE | 2018-05-27 23:30 | NUR ---
Report given to Esme WILKES
--- NOTE | 2018-05-27 23:35 | NUR ---
Report recieved from Alma WILKES to assume pt cares. Pt condition unchanged from previous shift assessment. Pt c/o continued pain to RLE et R arm as well as recurrent episode of "heebee jeebee's"; PRN pain/anxiety meds admin at this time per pt request. PT denies further needs. Call light in reach, bed alarm on. Will monitor.
[2018-05-28 04:34] VITALS: BP 143/72; PULSE 52; TEMP 98.7
[2018-05-28 07:50] VITALS: BP 144/76; PULSE 49; TEMP 98
--- NOTE | 2018-05-28 08:00 | NUR ---
Pt resting in bed with eyes closed. Breath sounds CTAB. BS active x 4. PICC to right upper arm without s/s of complications. Dressing to right foot CDI. O2 at 2 L/min via NC. No needs reported. Call light in reach.
--- NOTE | 2018-05-28 09:41 | NUR ---
TIMOTHY rec'd call from Kaylen at [facility]. They are unable to accept. TIMOTHY has faxed referrals to [facility] in [place], [facility], and [facility].
--- NOTE | 2018-05-28 10:17 | NUR ---
SW attended clinical rounds and met with patient after to disucss discharge plans. SW informed patient that [facility] is unable to accept her. SW also discuss [facility] as an option and [facility] in [place]. Patient prefers [facility] because [facility] is further away. Patient would also like to speak with her about [facility]. SW will update Elroy from [facility] about patient choices.
[2018-05-28 10:51] VITALS: BP 149/79; PULSE 54; TEMP 98
[2018-05-28 15:58] VITALS: BP 156/68; PULSE 51; TEMP 97.7
--- NOTE | 2018-05-28 18:15 | NUR ---
Pt sitting up in bed, requested pain medication this morning when working with PT, otherwise uneventful shift. Call light in reach.
[2018-05-28 20:15] VITALS: BP 131/90; PULSE 53; TEMP 97.7
--- NOTE | 2018-05-28 20:30 | NUR ---
Initial shift assessment done- states having pain 10/10 to leg,,also very anxious- requesting Ativan-- will give both [place] and Ativan at this time,, did use bedpan,had a soft brown stool. Dressing to right foot dry and intact-
[2018-05-28 23:15] VITALS: BP 136/70; PULSE 62; TEMP 98.9
[2018-05-29] VITALS (8 sets, daily range): BP systolic 115–149; BP diastolic 66–81; PULSE 53–61; TEMP 97.5–98
--- NOTE | 2018-05-29 14:00 | NUR ---
Primary nurse was assisted with [phone] patient care by [employer] student Janette Lemus and [employer] instructor Akosua Car RN-.
--- NOTE | 2018-05-29 14:54 | NUR ---
TIMOTHY met with Elroy from [facility] about patient. Elroy is waiting for insurance to approve. Connor with [facility] is also waiting to hear from insurance.
--- NOTE | 2018-05-29 20:30 | NUR ---
Initial shift assessment done- having some loose stools per bedpan- denies nausea. Requesting pain meds for right leg pain also would like her Ativan -
[2018-05-30 00:47] VITALS: BP 145/67; PULSE 57; TEMP 98
[2018-05-30 03:46] VITALS: BP 147/80; PULSE 56; TEMP 98.6
--- NOTE | 2018-05-30 05:16 | NUR ---
Quiet night- did have 3 small soft stool at beginning of shift but none since then-- medicated with Boyce twice for right leg /foot pain. VSS. Pt states her abdomen feels firmer than normal-
[2018-05-30 06:34] LABS: BASO # 0.1 (0.0-0.2); BASO % 0.6 % (0.0-2.0); EOS # 0.1 (0.0-0.7); EOS % 1.7 % (0-4.0); GRAN # 6.4 (1.4-6.5); GRAN % 79.3 % (42.2-75.2); HEMOGLOBIN 10.1 g/dl (12.5-16.0); LYMPH # 0.8 (1.2-3.4); LYMPH % 9.8 % (20.0-51.0); MEAN CELL VOLUME 94 fl (80.0-100.0); MEAN CORPUSCULAR HEMOGLOBIN 26 pg (27.0-31.0); MEAN CORPUSCULAR HGB CONC 28 g/dl (33.0-37.0); MEAN PLATELET VOLUME 10.5 fl (7.4-10.4); MONO # 0.7 (0.1-0.6); PLATELET COUNT 271 K/mm3 (130-400); RED BLOOD COUNT 3.89 M/mm3 (4.10-5.30); REDCELL DISTRIBUTION WIDTH-CV 19.3 % (11.5-14.5)
[2018-05-30 06:36] LABS: HEMATOCRIT 36.5 % (37.0-47.0)
[2018-05-30 06:44] LABS: CALCIUM 9.2 mg/dL (8.4-10.2); CREATININE, serum 1.34 mg/dL (0.52-1.25); POTASSIUM 4.4 mmol/L (3.4-5.0)
--- NOTE | 2018-05-30 07:20 | NUR ---
Received report from off going shift. Informed patient had a good night, woke easily to take morning med and is currently resting with eyes closed. Shows no signs of discomfort. Call light is in reach.
[2018-05-30 07:45] VITALS: BP 146/73; PULSE 58; TEMP 97.6
--- NOTE | 2018-05-30 11:33 | NUR ---
TIMOTHY spoke with HERACLIO Tuttle , about insurance. Regina from [place] reports that patient will need to be denied by [facility] before patient will be approved by insurance to go to [facility]. TIMOTHY faxed a referral to [facility].
--- NOTE | 2018-05-30 11:54 | NUR ---
Patient had vancomycin trough drawn and high level was reported. Call to pharmacy, 1100 dose held and adjustment will be made by pharmacy for dose and time.
[2018-05-30 12:15] VITALS: BP 136/84; PULSE 54; TEMP 97.6
--- NOTE | 2018-05-30 13:42 | NUR ---
Primary nurse was assisted with [phone] patient care by [employer] student Janette Lemus and [employer] instructor Akosua Car RN-.
--- NOTE | 2018-05-30 15:40 | NUR ---
SW spoke with [facility] in [place]. They report they have accepted patient clinically and they are waiting to hear from insurance for approval.
[2018-05-30 16:44] VITALS: BP 145/62; PULSE 56; TEMP 98.2
--- NOTE | 2018-05-30 17:21 | NUR ---
Patients right lower leg is dry and scaly, some scabbed ulcerated areas are noted. Arch of foot is noted to have 5x5 cm wound covered with eschar, borders are a pale pink. Large cracked peeling area observed to inner foot. Spoke with Dr. Bazzi today, he requests wound care involevement. Did speak with wound clinic and they said they are aware of condition of the foot as they referred patient to ER for care.
[2018-05-30 18:54] VITALS: BP 148/86; PULSE 53; TEMP 98
--- NOTE | 2018-05-30 20:12 | NUR ---
Pt resting in bed watching TV, some C/O pain, shift assessment complete, left Pt call light in reach, bed in lowest position.
--- NOTE | 2018-05-31 00:19 | NUR ---
Reports pain 8/10 between legs. Provided PRN norco as ordered. Denies other needs. Call light in reach.
[2018-05-31 00:31] VITALS: BP 145/88; PULSE 54; TEMP 97.5
--- NOTE | 2018-05-31 05:51 | NUR ---
Pt did not sleep well overnight, she did have C/O discomfort, VS have remained stable.
[2018-05-31 08:02] VITALS: BP 140/77; PULSE 52; TEMP 97.6
--- NOTE | 2018-05-31 09:56 | NUR ---
Pt assessment complete. Pt is laying in bed upon entry, she is A/O x3. Her breathing is even and unlabored on RA. Pt denies SOB. Currently rates pain 7/10 to RLE. Dressing CDI. Pt denies N/V. Pt denies further needs, call light within reach.
[2018-05-31 11:08] VITALS: BP 138/77; PULSE 51; TEMP 97.6
--- NOTE | 2018-05-31 11:40 | NUR ---
TIMOTHY spoke with Elroy at [facility]. Elroy reports that [facility] can accept clinically, but is waiting on insurance authorization. TIMOTHY will continue to follow.
[2018-05-31 16:17] VITALS: BP 138/73; PULSE 55; TEMP 97.4
[2018-05-31 19:15] VITALS: BP 145/72; PULSE 57; TEMP 97.8
--- NOTE | 2018-05-31 19:24 | NUR ---
Pt had uneventful day, intermittent pain to RLE. Late this afternoon patient reported RLQ pain. Upon assessment patient reports she has had this pain the entire stay, reports hardened abdomen. Pt states pain radiates down RLE. No N/V. Has had a soft formed BM this afternoon. PRN pain medications and Levsin adminstered. Llanos draining dependently. VSS. Call light within reach.
--- NOTE | 2018-05-31 20:33 | NUR ---
Pt resting in bed watching TV, she has C/O pain and discomfort from her Llanos catheter, shift assessments complete, left Pt call light in reach, bed in lowest position.
[2018-05-31 23:48] VITALS: BP 144/73; PULSE 51; TEMP 97.6
[2018-06-01 04:11] VITALS: BP 138/77; PULSE 53; TEMP 97.7
--- NOTE | 2018-06-01 06:25 | NUR ---
Pt did not sleep well during the night, Llanos was changed last evening, she has complaint of pain when she "is peeing" Pt has had several small bowel movements overnight. VS hqave remained stable.
[2018-06-01 08:01] VITALS: BP 138/88; PULSE 51; TEMP 97.7
--- NOTE | 2018-06-01 08:40 | NUR ---
Pt assessment complete. Pt is laying in bed upon entry, she is A/O x3. Moaning stating "it hurts to pee", explained to the patient that she has a catheter in place. Pt continues to report lower abdominal pain, no N/V. Small smear of BM. Dressing in place to R foot. Llanos DD, small amount of urine draining. Pt requesting pain meds, will administer when available. Pt encouraged to drink Miralax. Call light within reach.
[2018-06-01 10:01] LABS: BASO # 0.1 (0.0-0.2); BASO % 0.7 % (0.0-2.0); EOS # 0.1 (0.0-0.7); GRAN # 5.6 (1.4-6.5); GRAN % 79.9 % (42.2-75.2); HEMATOCRIT 37.6 % (37.0-47.0); HEMOGLOBIN 10.5 g/dl (12.5-16.0); LYMPH # 0.7 (1.2-3.4); LYMPH % 9.6 % (20.0-51.0); MEAN CELL VOLUME 94 fl (80.0-100.0); MEAN CORPUSCULAR HEMOGLOBIN 26 pg (27.0-31.0); MEAN CORPUSCULAR HGB CONC 28 g/dl (33.0-37.0); MONO # 0.5 (0.1-0.6); MONO % 7.4 % (1.7-9.3); PLATELET COUNT 238 K/mm3 (130-400); RED BLOOD COUNT 3.99 M/mm3 (4.10-5.30); REDCELL DISTRIBUTION WIDTH-CV 19.4 % (11.5-14.5)
[2018-06-01 10:12] LABS: CALCIUM 9.2 mg/dL (8.4-10.2); CREATININE, serum 1.35 mg/dL (0.52-1.25); POTASSIUM 4.7 mmol/L (3.4-5.0)
[2018-06-01 10:59] VITALS: BP 137/64; PULSE 52; TEMP 98.2
[2018-06-01 15:39] VITALS: BP 141/65; PULSE 50; TEMP 98
[2018-06-01 19:33] VITALS: BP 141/78; PULSE 54; TEMP 98.2
--- NOTE | 2018-06-01 19:46 | NUR ---
Pt had uneventful day. Continued to report RLE and Lower abdominal pain, PRN pain medications administered. Pt had good UOP through nichole. Had some BM's. VSS. Report given to CHUNG Fontaine.
--- NOTE | 2018-06-01 20:10 | NUR ---
Shift assessment complete. Pt resting in bed, awake, a&o, cooperative c cares. Pt c/o continued pain to RLE, PRN pain biomedical engineer per pt request. PT calm et cooperative at this time, but pt expresses fear of getting "heebee jeebees", PRN Ativan given c HS meds per pt request. Pt denies other c/o. L BKA noted, healed but c several small crusting/scabs noted. RLE dry/flaking, wound to R heel c dressing C/D/I. PICC noted to R upper arm, patent c good blood return. Llanos to DD, draining s complication. Pt denies further needs. Call light in reach, will monitor.
[2018-06-01 23:23] VITALS: BP 133/76; PULSE 51; TEMP 97.5
--- NOTE | 2018-06-02 07:20 | NUR ---
Received report, went to see patient. Patient was noted to be resting with eyes closed. Did not open eyes to noise. Fan is in place on the bed rail. Call light is within reach.
[2018-06-02 07:54] VITALS: BP 145/80; PULSE 55; TEMP 97.4
--- NOTE | 2018-06-02 11:10 | NUR ---
PICC intact right upper arm. With sterile technique right upper arm PICC dressing change done with insertion site cleansed with ChloraPrep 1, impregnated chlorhexidine disc applied, skin prep, StatLock, and Tegaderm applied. Just symptoms of IV complications noted. No concerns voiced. Arm wrapped with Wilfred to protect catheter.
[2018-06-02 12:36] VITALS: BP 138/80; PULSE 52; TEMP 97.5
--- NOTE | 2018-06-02 13:45 | NUR ---
TIMOTHY spoke with [facility]. They report an auth will be sent to insurance. TIMOTHY faxed updates to [facility].
--- NOTE | 2018-06-02 18:52 | NUR ---
Patient resting in bed, assisted on bedpan at this time. Call light is within reach. Will call when finished. Antibiotic is being administered at this time. Report given. No complaints.
[2018-06-02 19:33] VITALS: BP 140/80; PULSE 53; TEMP 97.5
--- NOTE | 2018-06-02 20:40 | NUR ---
Shift assessment complete. Pt resting in bed, awake, a&o, cooperative c cares. Pt reports continued pain to RLE, will given PRN pain meds c HS meds per pt request. Pt denies other c/o at this time. PICC noted to R upper arm, patent c good blood return. Pt s further needs at this time. Call light in reach, will monitor.
[2018-06-02 23:28] VITALS: BP 134/70; PULSE 51; TEMP 97.3
[2018-06-03 07:26] VITALS: BP 133/73; PULSE 53; TEMP 97.5
--- NOTE | 2018-06-03 08:58 | NUR ---
Patient is resting in bed watching TV. Reports having pain at 5/10, PRN pain medication administered. Wound care clinic called, requested to assess wound. Was informed that there was no one available to come see patient today but would check on tomorrow. Was instructed to continue dressing changes every day using gauze and kerlix. No further needs voiced. Call light is within reach.
[2018-06-03 10:59] VITALS: BP 97/69; PULSE 56; TEMP 98.6
--- NOTE | 2018-06-03 13:55 | NUR ---
Patient accepted to [facility] hospital today for ltac placement. Patient is hesitant but agreeable to go. SW informed nurse and PA about discharge. [facility] will sweet pickle maker patient at 3 pm for transport. Patient called to inform him. Nurse has report number.
[2018-06-03] MEDS ORDERED: ROCEPHIN 2GM VIAL21 IV (14:28)
[2018-06-03] MEDS ORDERED: LEVSIN0.125 M1 PO (14:32)
[2018-06-03] MEDS ORDERED: VANCOCIN HCL1 GM IV ×2 (14:32→14:51)
[2018-06-03] MEDS ORDERED: NICODERM C21 MG/PATC TD (14:35)
[2018-06-03] MEDS ORDERED: LOPRESSOR 225 MG/TAB PO (14:37)
[2018-06-03] MEDS ORDERED: MIRALAX PA17 GM/Dose PO (14:38)
[2018-06-03] MEDS ORDERED: DULCOLAX STOOL100 MG PO (14:39)
[2018-06-03] MEDS ORDERED: NOVOLOG 100U100 U/M1 SQ (14:41)
[2018-06-03] MEDS ORDERED: AZO URINARY PAI95 MG PO (14:42)
--- NOTE | 2018-06-03 14:49 | NUR ---
TIMOTHY faxed discharge orders to [facility]. EMS here to transport patient
== END 2018-06-03 15:16 | DRG 299 ==
LOC: COL.ER 15:40 → MEDICAL 18:14 → ICU 18:14 → MEDICAL 05-21 17:27
PROVIDERS: Emergency Medicine; Family Medicine; Hospitalist; Nurse Practitioner Family; Physician Assistant; ADMIT Internal Medicine
PROC: 02HV33Z Insertion of Infusion Device into Superior Vena Cava, Percutaneous Approach (ICD-10-PCS; principal; 2018-05-22)
DX: E11.52 Type 2 diabetes mellitus with diabetic peripheral angiopathy with gangrene (principal); I50.23 Acute on chronic systolic (congestive) heart failure; I83.214 Varicose veins of right lower extremity with both ulcer of heel and midfoot and inflammation; Z68.42 Body mass index [BMI] 45.0-49.9, adult; I13.0 Hypertensive heart and chronic kidney disease with heart failure and stage 1 through stage 4 chronic kidney disease, or unspecified chronic kidney disease; I96 Gangrene, not elsewhere classified; E66.01 Morbid (severe) obesity due to excess calories; E11.42 Type 2 diabetes mellitus with diabetic polyneuropathy; N18.9 Chronic kidney disease, unspecified; E11.22 Type 2 diabetes mellitus with diabetic chronic kidney disease; I25.10 Atherosclerotic heart disease of native coronary artery without angina pectoris; I48.0 Paroxysmal atrial fibrillation; J44.9 Chronic obstructive pulmonary disease, unspecified; Z95.5 Presence of coronary angioplasty implant and graft; Z89.512 Acquired absence of left leg below knee; F17.210 Nicotine dependence, cigarettes, uncomplicated; Z79.01 Long term (current) use of anticoagulants; E87.5 Hyperkalemia; E11.65 Type 2 diabetes mellitus with hyperglycemia; B96.20 Unspecified Escherichia coli [E. coli] as the cause of diseases classified elsewhere; B96.89 Other specified bacterial agents as the cause of diseases classified elsewhere; B95.2 Enterococcus as the cause of diseases classified elsewhere; E03.9 Hypothyroidism, unspecified; D64.9 Anemia, unspecified
CPT/HCPCS: 99222-AI; 99231-AI; 99232-AI; 99233-AI; 99239; C1751; C1894; C8923; J0692; J0696; J1940; J2543; J3370; J7040; J7050; Q9957